=== PATIENT | female | born 1945 | race Caucasian/White ===

== ENCOUNTER → 2022-02-06 | Day surgery (SDC) | payer MEDICARE, BC ==
[~2022-02-06] MED LIST: Ketamine 200 MG/20 ML MDV ONE; Lactated Ringers 1,000 ML IV SCH; Propofol 200 MG/20 ML SDV ONE; fentaNYL 50 MCG/ML SDV ONE
== END ==
LOC: CC.SDS 08:06
PROVIDERS: ATTEND Family Medicine
DX: K52.832 Lymphocytic colitis (principal); Z79.899 Other long term (current) drug therapy
CPT/HCPCS: 88305; J2704; J3010; J7120